=== PATIENT | male | born 1955 | race Caucasian/White ===

== ENCOUNTER 2017-08-12 10:10 | Emergency (ER) | payer BC ==
[~2017-08-12] VITALS: Ht 170.2 cm; Wt 86.0 kg
[~2017-08-12 10:10] MED LIST: ASPI81 PO; GLUCTAB PO; LEVA750T9 PO; LIPI40TA PO; METR-1 PO; PIOG45 PO; PROT40TA PO; QUIN20 PO; SITA100 PO; [UNRECOGNIZED DRUG - CODE] PO
[2017-08-12 10:15] VITALS: BP 176/81; PULSE 87; RESP 16; TEMP 98.4; O2SAT 99
[2017-08-12] MEDS ORDERED: RABIES IMMUNE GLOBULIN INJ 1,500 UNITS/10 ML VIAL IM ONE (11:30)
--- NOTE | 2017-08-12 11:33 | PD ---
HPI Chief Complaint: Medical Clearance Time Seen by Provider: 11:19 Travel History International Travel<30 days: No Contact w/Intl Traveler<30days: No Traveled to known affect area: No History of Present Illness HPI 62 old male who is sent by the health department for rabies immunoglobulin. The patient sustained a stray cat scratch/bite on the right ankle and foot approximately 2 weeks ago. He was seen at the health Department 4 days ago and given first rabies vaccination, then he was given second rabies vaccination today and was sent here for rabies immunoglobulin as the indication is that this can be taken within the first 7 days of the first rabies vaccination. The patient has no complaints at this time. PFSH Past Medical History Asthma: Yes (CHILDHOOD) Autoimmune Disease: No Blood Disorders: No Heart Rhythm Problems: No Cancer: No Cardiac Catheterization: Yes High Cholesterol: Yes Chest Pain: Yes Congestive Heart Failure: No COPD: No Coronary Artery Disease: Yes Diabetes: Yes Patient Takes Glucophage: Yes Diminished Hearing: Yes GERD: No Hepatitis: No Hiatal Hernia: No Hypertension: Yes Musculoskeletal: Yes (R KNEE LIGIMENT TEARS) Psychiatric: No Respiratory: No Myocardial Infarction: No Sleep Apnea: No Ulcer: No Past Surgical History AICD: No Coronary Stent: Yes Genitourinary Surgery: No Pacemaker: No Social History Alcohol Use: Yes ([employer] "OCCASSIONALLY") Tobacco Use: Yes (X 20 YRS AGO) Substance Use: No Allergies-Medications (Allergen,Severity, Reaction): Coded Allergies: penicillin G (Unverified Allergy, Unknown, 08/12/17) Reported Meds & Prescriptions Reported Meds & Active Scripts Active Reported Darvon-N (Propoxyphene Napsylate) 100 Mg Tab 100 Mg PO TIDPRN Protonix (Pantoprazole Sodium) 40 Mg Tabdr 40 Mg PO DAILY Flagyl (Metronidazole) 500 Mg Tab 500 Mg PO TID Levaquin (Levofloxacin) 750 Mg Tab 750 Mg PO DAILY Lipitor (Atorvastatin Calcium) 40 Mg Tab 40 Mg PO DAILY Glucophage (Metformin HCl) 500 Mg Tab 500 Mg PO BID Januvia (Sitagliptin Phosphate) 100 Mg Tab 100 Mg PO DAILY Accupril (Quinapril HCl) 20 Mg Tab 20 Mg PO DAILY Actos (Pioglitazone HCl) 45 Mg Tab 45 Mg PO DAILY Aspirin 81 Mg Tab 81 Mg PO DAILY Review of Systems Skin: Positive Other (positive for cat bite/scratch. Denies pain.) Physical Exam Narrative GENERAL: Well-developed well-nourished male in no acute distress SKIN: Warm and dry. Superficial almost completely healed wound noted to the right foot and the right ankle. CARDIOVASCULAR: Regular rate and rhythm. No murmur appreciated. RESPIRATORY: No accessory muscle use. Clear to auscultation. Breath sounds equal bilaterally. Data Data Last Documented VS Vital Signs Date Time Temp Pulse Resp B/P (MAP) Pulse Ox O2 Delivery O2 Flow Rate FiO2 08/12/17 10:15 98.4 87 16 176/81 (112) 99 Orders Orders Rabies Immune Globulin Inj (Hyperrab S/D (08/12/17 11:30) Ed Discharge Order (08/12/17 11:29) [facility] Medical Decision Making Medical Screen Exam Complete: Yes Emergency Medical Condition: Yes Medical Record Reviewed: Yes Differential Diagnosis Rabies immunoglobulin, cat scratch, cat bite Narrative Course The patient will be given rabies immunoglobulin. He will follow-up at the health department for the remaining two vaccination doses. Diagnosis Primary Impression: Encounter for prophylactic rabies immune globin Additional Instructions: Follow-up at the health department for completion of your rabies vaccination series. Return for any emergent medical conditions. Med/Other Pt SpecificInfo: No Change to Meds Disposition: 01 DISCHARGE HOME Condition: Stable [place] Aug 12, 2017 11:33
[2017-08-12] MEDS ORDERED: RABIES IMMUNE GLOBULIN INJ 300 UNITS/2 ML VIAL IM ONE (12:00)
== END 2017-08-12 12:23 | disposition home or self-care (01) ==
LOC: NEPK 10:10
DX: Z20.3 Contact with and (suspected) exposure to rabies (principal); W55.01XA Bitten by cat, initial encounter; Z23 Encounter for immunization
CPT/HCPCS: 90375; 96372